=== PATIENT | male | born 1970 | race Caucasian/White ===

== ENCOUNTER → 2022-12-17 10:19 | Outpatient (BNVA) | payer MEDICAID, SELFPAY | PROVIDERS: PCP Registered Nurse; Visit Provider Surgery | DX: E66.01 Morbid (severe) obesity due to excess calories (principal); Z86.010 Personal history of colon polyps; Z68.38 Body mass index [BMI] 38.0-38.9, adult | CPT/HCPCS: 99212 ==

== ENCOUNTER 2023-01-30 06:07 | Day surgery (SDC) | payer MEDICAID, SELFPAY ==
[2023-01-27 16:01] VITALS: BMI 38.5
[2023-01-30 06:26] VITALS: BP 144/80; PULSE 81; RESP 18; TEMP 36.6; O2SAT 97
[2023-01-30] MEDS: Lactated Ringers 1,000 ML 50 ML IVCONT (06:26)
--- NOTE | 2023-01-30 07:57 | P.OP_ITS ---
Operative Note Operative Note Date of Service: 01/30/23 Narrative: Preop diagnosis: History of adenomatous polyp of the colon Postop diagnosis: Internal, external hemorrhoids otherwise normal colonoscopy findings Procedure: Colonoscopy Surgeon: Vineet Burch MD The patient is a 52-year-old male with a colonoscopy in 2019, with an adenomatous polyp, more than 1 cm, on a stalk, removed at that time. I therefore recommended for him to have a follow-up colonoscopy within 3 years in view of this. He understood the technique of the planned procedure as well as the risks, benefits, and alternatives The patient was brought to the operating room and placed in left lateral d ecubitus position under monitored anesthesia care. A surgical time-out was done. A full digital rectal exam was done and this did not reveal any significant anal lesions. The tip of the Olympus colonoscope was gently introduced through the anal orifice advanced with insufflation all the way to the cecum. The cecum was intubated. The cecum was identified by visualization of the ileocecal valve as well as the appendiceal orifice. The cecal mucosa was unremarkable. The scope was gradually withdrawn with careful examination of the entire colonic mucosa being done with scope withdrawal. The patient had adequate bowel prep so it was unlikely that any lesion may have been missed. We made multiple passes at the level of about 30-50 cm and we did not find any residual or recurrent polyp.The rectum was reached and there were no lesions seen. The anal canal was unremarkable. The scope was then withdrawn completely with desufflation . The patient tolerated procedure well. There were no immediate complications. In view of his history of large adenomatous polyp, I would recommend another colonoscopy in the next 5 years.
--- NOTE | 2023-01-30 08:00 | MHC.SHP ---
Pre-Procedural Eval Section A Date of Service: 01/30/23 Section B Chief Complaint: Personal history of colonic polyps Details of Present Illness: history of polyp in 2019, more than 1 cm Relevant Social History: None Present Medications: see Short Stay Collaborative assessment Medical History: Significant History ( obesity, hyperlipidemia) History of Previous Operations: No relevant previous surgery Allergies: Allergies Allergy/AdvReac Type Severity Reaction Status Date / Time No Known Drug Allergies Allergy Unknown U Verified 01/30/23 06:18 Review of Systems Sugical H&P ROS: Negative: Constitution, Cardiovascular, Respiratory, Neurological, Psychiatric, Hem-Onc, Allergic/Immunologic, Gastrointestinal, Genitourinary, Musculoskeletal, Integumentary, Endocrine and Eyes/Ears/Nose/Throat Exam Surgical H&P Exam: Normal: HEENT, Normal: Heart, Normal: Lungs, Normal: Extremities, Normal: Abdomen, Normal: Skin and Normal: Neurological Plan Diagnosis/Plan: Unchanged I have reviewed the history and physical and performed a pertinent physical examination on my patient. No changes have occurred unless specified. Time Spent With Patient Time: Total time managing care of this patient today ____ minutes.
[2023-01-30 08:03] VITALS: BP 127/72; PULSE 82; RESP 16; TEMP 36.6; O2SAT 95
[2023-01-30 08:18] VITALS: BP 127/89; PULSE 73; RESP 18; TEMP 36.9; O2SAT 96
--- NOTE | 2023-01-30 08:45 | P.CONAN_ITS ---
[facility] Active Problems Active Problems: All Active Problems (Updated 12/17/22 @ 10:39 by Vineet Burch MD) Morbid obesity (Acute) Hyperlipidemia (Acute) History of adenomatous polyp of colon (Acute) Past Medical History Medical History History of adenomatous polyp of colon Hyperlipidemia Morbid obesity Family History Family History Father Colon cancer Family history of problems with anesthesia: No Surgical History Surgical History H/O local excision of skin lesion (04/07/18) History of colonoscopy (10/23/19) History of colonoscopy with polypectomy (10/14/19) History of Problems with Anesthesia: No Social History Social History Alcohol intake: never Patient Tobacco Use Status: Never used Tobacco Meds Allergies Allergy/AdvReac Type Severity Reaction Status Date / Time No Known Drug Allergies Allergy Unknown U Verified 01/30/23 06:18 Home Medications Medication Instructions Recorded Confirmed Last Taken Type aspirin 81 mg tablet,delayed 81 mg PO DAILY 12/17/22 01/30/23 01/27/23 History release (Adult Low Dose Aspirin) atorvastatin 10 mg tablet 10 mg PO BEDTIME 12/17/22 01/30/23 Unknown History Exam Exam Date and Time: January 30, 2023 0845 Height,Weight and Vital Signs: Height 5 ft 8 in Weight 114.759 kg Last Vital Signs Temp 98.4 F 01/30/23 08:18 Pulse 73 01/30/23 08:18 Resp 18 01/30/23 08:18 BP 127/89 01/30/23 08:18 Pulse Ox 96 01/30/23 08:18 O2 Del Method Room Air 01/30/23 08:18 Airway Mallampati Class: III TM Dist: >3cm Neck ROM: Full Heart: RRR Lungs: CTA Assessment and Plan Final Anesthetic Review Family History of Problems with Anesthesia: No History of Problems with Anesthesia: No NPO: Yes ASA Class: III Final Preanesthetic Review: Meds/Allgs Chart Reviewed, Consent Obtained/Reviewed and Anes Risks/Benef Reviewed Patient Risk: Low Procedure Risk: Low Anesthetic Plan Anesthetic Plan: MAC: Disposition: Standard PACU
--- NOTE | 2023-01-30 08:47 | HO.POSTANES ---
Post Anesthesia Evaluation Post Anesthesia Evaluation Date of Service: 01/30/23 Vital Signs: Vital Signs Temp Pulse Resp BP Pulse Ox O2 Del Method 01/30/23 08:18 98.4 F 73 18 127/89 96 Room Air 01/30/23 08:03 98 F 82 16 127/72 95 Room Air 01/30/23 06:26 97.9 F 81 18 144/80 H 97 Room Air Anesthesia: Monitored Mental Status: Awake Pain Control: Satisfactory Nausea/Vomiting: None Hydration: Adequate Anesthesia-Related Issues: No Anes. Related Issues
== END 2023-01-30 08:41 | disposition home or self-care (01) ==
PROVIDERS: PCP Registered Nurse; Visit Provider Surgery
PROC: 0DJD8ZZ Inspection of Lower Intestinal Tract, Via Natural or Artificial Opening Endoscopic (ICD-10-PCS; CPT 45378; principal; 2023-01-30 07:30)
DX: Z12.11 Encounter for screening for malignant neoplasm of colon (principal); Z86.010 Personal history of colon polyps; K64.8 Other hemorrhoids; K64.4 Residual hemorrhoidal skin tags; E78.5 Hyperlipidemia, unspecified; E66.01 Morbid (severe) obesity due to excess calories; Z68.38 Body mass index [BMI] 38.0-38.9, adult; Z79.82 Long term (current) use of aspirin; Z79.899 Other long term (current) drug therapy
CPT/HCPCS: 45378

== ENCOUNTER 2023-04-30 16:23 | Outpatient (REF) | payer OTHER, SELFPAY | END 2023-04-30 16:24 | disposition home or self-care (01) | LOC: HO.HHCL 16:23 | PROVIDERS: Visit Provider Registered Nurse | DX: Z00.00 Encounter for general adult medical examination without abnormal findings (principal) | CPT/HCPCS: 36415; 84153 ==

== ENCOUNTER 2023-11-24 08:53 | Outpatient (REF) | payer BC, SELFPAY ==
[2023-11-24 13:54] LABS: Anion Gap 13 (12-20); Blood Urea Nitrogen 13 mg/dL (9-16); Calcium 9.2 mg/dL (8.4-10.2); Carbon Dioxide 22 mmol/L (22-29); Chloride 106 mmol/L (96-108); Cholesterol 171 mg/dL (<200); Estimated Glomerular Filt Rate > 60; Glucose Random 125 mg/dL (60-115); HDL Cholesterol 41 mg/dL (>40); LDL Cholesterol Calculated 112 mg/dL (<100); Potassium 4.1 mmol/L (3.3-5.1); Sodium 137 mmol/L (135-145); Triglycerides 93 mg/dL (<150)
[2023-11-24 14:09] LABS: Creatinine Urine 203.98 mg/dL; Microalbum/Creatinine Ratio Ur 128.4 ug/mg cr (<30)
[2023-11-25 08:38] LABS: HBS Num1 62.08 mIU/mL (0-7.99); HBc Num1 0.13 S/CO (0.00-0.79); HBsAGNum1 0.38 S/CO (0.00-0.99); Hepatitis B Core Antibody Nonreactive (Nonreactive); Hepatitis B Surface Antigen Negative (Negative); ~HepC Num1 0.09 S/CO (0.00-0.79); ~Hepatitis B Surface Antibody REACTIVE (Nonreactive); ~Hepatitis C Antibody Nonreactive (Nonreactive)
== END 2023-11-24 08:54 | disposition home or self-care (01) ==
LOC: HO.HHCL 08:53
PROVIDERS: Visit Provider Nurse Practitioner
DX: Z11.3 Encounter for screening for infections with a predominantly sexual mode of transmission (principal); E66.01 Morbid (severe) obesity due to excess calories; Z68.38 Body mass index [BMI] 38.0-38.9, adult; I10 Essential (primary) hypertension
CPT/HCPCS: 36415; 80048; 80061; 82043; 82570; 86704; 86706; 86803; 87340

== ENCOUNTER 2024-04-09 00:08 | Observation (INO) | payer BC, SELFPAY ==
[2024-04-09] VITALS (13 sets, daily range): BP systolic 132–181; BP diastolic 73–92; PULSE 57–96; RESP 12–20; TEMP 36.1–37.4; O2SAT 96–100; BMI 35.6; BMI 37.0
--- NOTE | ~2024-04-09 | CT_ITS ---
EXAMINATION: CT HEAD WITHOUT CONTRAST (STROKE PROTOCOL) CLINICAL INFORMATION: Stroke protocol. Left-sided numbness. Slurred speech. COMPARISON: None available. TECHNIQUE: Contiguous axial imaging was performed from the skull base to vertex without intravenous administration of contrast. This CT examination was performed using dose optimization techniques as appropriate, variously including the following: *Automated exposure control *Adjustment of mA and/or kV according to patient size (this includes techniques or standardized protocols for targeted exams where dose is matched to indication/reason for exam; i.e. extremities or head) *Use of iterative reconstruction technique DLP: 715 mGy-cm FINDINGS: The lateral, third and fourth ventricles are normally aligned. The cortical sulci and basal cisterns are normally as well as well. There is no acute territorial defect, hemorrhage or midline shift. Extra-axial spaces are unremarkable. Calvarium/scalp: Intact. Maxillofacial sinuses and mastoids: Clear as visualized. CT/CT head for stroke IMPRESSION: No acute intracranial pathology. This critical result was discussed with Dr. Josue Cantu at 12:46 AM hours on April 09, 2024 . It was ascertained that the content and urgency of the report was understood at the time of direct communication. Electronically signed by: Bhupendra Garcia MD 04/09/2024 12:51 AM EDT
--- NOTE | ~2024-04-09 | MR_ITS ---
EXAMINATION: MR CERVICAL SPINE WITHOUT CONTRAST CLINICAL INFORMATION: c3-c4 protrusion COMPARISON: Same day CTA Head and Neck TECHNIQUE: MRI of the cervical spine was obtained using routine sequences without contrast. FINDINGS: Motion degraded examination Slight reversal of the usual lordosis in the upper cervical spine. No significant spondylolisthesis. No suspicious marrow signal or focal osseous lesion. No significant marrow edema. The vertebral body heights are maintained. Mild disc height loss at C5-C6 The cervical spinal cord is normal in caliber and signal. Limited evaluation of the soft tissues of the neck without demonstrated abnormalities. The flow voids of the major cervical vessels are maintained. Within the limitations of motion artifact, no cord signal abnormality is identified. SPINAL LEVELS: C2-C3: No significant spinal canal or neuroforaminal narrowing . Left facet arthropathy. C3-C4: Shallow disc bulge contacts the ventral cord but does not contribute to significant spinal canal stenosis. Mild uncovertebral hypertrophy and mild bilateral neural foraminal narrowing. C4-C5: Left facet arthropathy and uncovertebral hypertrophy. Mild to moderate left neural foraminal narrowing. No significant central spinal canal stenosis. C5-C6: Disc bulge with superimposed left central extrusion contacts the left ventral cord and contributes to moderate left eccentric central spinal canal stenosis. Gyne-rl-hmorrqoz left neural foraminal narrowing. C6-C7: No significant spinal canal or neuroforaminal narrowing . Shallow central disc protrusion. C7-T1: No significant spinal canal or neuroforaminal narrowing MR/MR cervical spine wo con IMPRESSION: 1. At C5-C6, a left central disc extrusion contacts the left ventral cord and contributes to moderate left eccentric spinal canal stenosis. No cord signal abnormality. 2. Additional mild degenerative changes of the cervical spine as described above without significant spinal canal stenosis or high-grade neural foraminal narrowing. Electronically signed by: Josue Ruff MD 04/09/2024 11:19 AM EDT
--- NOTE | ~2024-04-09 | CT_ITS ---
EXAMINATION: CT ANGIOGRAM HEAD CT ANGIOGRAM NECK CLINICAL INFORMATION: Stroke Protocol COMPARISON: Concurrent head CT TECHNIQUE: Test bolus sequences followed by intravenous administration 70 mL of Omnipaque 350. Helical imaging was performed in the axial plane from the aortic arch to the skull vertex. Delayed postcontrast imaging of the head was also performed. The data was processed at the pet technologist's workstation for generation of MIP sequences. Angled MIPs and volume rendered reformatted images were also generated at an offline 3D workstation. Stenoses are assessed in accordance with Guillen et al. Quantification of Carotid Stenosis on CT Angiography. AJR 2006. 27(1):13-19. This CT examination was performed using dose optimization techniques as appropriate, variously including the following: *Automated exposure control *Adjustment of mA and/or kV according to patient size (this includes techniques or standardized protocols for targeted exams where dose is matched to indication/reason for exam; i.e. extremities or head) *Use of iterative reconstruction technique DLP: 1536 mGy-cm FINDINGS: CT HEAD: Noncontrast intracranial findings discuss separately. No pathologic intra-axial enhancement or regional oligemia. CTA HEAD: No hemodynamically significant stenosis or occlusion in the anterior or posterior circulation. No aneurysms and no high flow vascular malformations. Timing of the contrast bolus allows assessment of the major dural venous sinuses, which all opacify normally CTA NECK: Suboptimal examination related to contrast bolus timing and patient's body habitus. Classic 3 vessel branching pattern of the aortic arch. Origins of the great vessels are widely patent. The common carotid arteries are widely patent. The carotid bifurcations and bilateral internal carotid arteries are normal. The vertebral arteries are codominant The vertebral artery ostia are widely patent. Both vertebral arteries are widely patent throughout their extracranial cervical course. CT NECK: Punctate calcified palatine tonsilloliths. Mild cervical spondylosis, notably with a paracentral disc protrusion at C3-C4 encroaching upon and likely causing mass effect along the ventral cord. Reversal of the normal cervical lordosis. Partially imaged findings of diffuse idiopathic skeletal hyperostosis in the thoracic spine with asymmetric bridging right ventrolateral disc osteophytes. CT/CT angio head neck stroke IMPRESSION: 1. No acute intracranial findings. 2. No acute arterial occlusion or hemodynamically significant stenosis within the head or neck. 3. Paracentral disc protrusion at C3-C4 encroaches upon and likely causing mass effect along the ventral cord. Correlate clinically for referable myelopathy and consider further evaluation with cervical spine MRI as warranted. Electronically signed by: Sara Gtz MD 04/09/2024 01:10 AM EDT RP
--- NOTE | ~2024-04-09 | MR_ITS ---
EXAMINATION: MR BRAIN WITHOUT CONTRAST CLINICAL INFORMATION: Possible CVA. COMPARISON: CT head and CT of the head and neck earlier 08/09/2023. TECHNIQUE: MRI of the brain was obtained using routine sequences without contrast. FINDINGS: No diffusion abnormalities are identified to suggest an acute or subacute infarct. No mass effect or midline shift is seen. The ventricles and sulci are normal in size. There are few nonspecific foci of hyperintense T2 and FLAIR signal in the periventricular and subcortical white matter. No extra-axial fluid collections are seen. The brainstem appears normal. No pathologic magnetic susceptibility artifact is identified on the gradient refocused acquisition. The cerebellar tonsils have normal contour and position, and the craniocervical junction appears normal. Marrow signal and midline structures are normal. The major intracranial flow-voids at the level of the lower [place] are preserved. The dural venous sinus flow-voids are maintained. The mastoid air cells and paranasal sinuses are well-aerated. MR/MR head/brain wo con IMPRESSION: 1. There are no acute bleeds or territorial infarcts. No masses are demonstrated. Electronically signed by: Denis Mcarthur MD 04/09/2024 11:15 AM EDT
--- NOTE | 2024-04-09 00:29 | ECG_ITS ---
Test Reason : weakness Blood Pressure : / mmHG Vent. Rate : 099 BPM Atrial Rate : 099 BPM P-R Int : 166 ms QRS Dur : 090 ms QT Int : 340 ms P-R-T Axes : 056 004 090 degrees QTc Int : 436 ms Normal sinus rhythm Nonspecific T wave abnormality Abnormal ECG When compared with ECG of 01-FEB-2013 06:49, ST no longer elevated in Lateral leads QT has lengthened Referred By: Josue Cantu Electronically Signed By:CECILIA GERONIMO
[2024-04-09 00:33] LABS: Prothrombin Time Whole Bld POC 11.9 sec (11.1-13.5)
--- NOTE | 2024-04-09 00:34 | PC.NURSE ---
pt ambulatory with steady gait from wr to ed4. this rn made aware of stroke alert 0023, provider made aware as well and to bedside at 0025. pt reports speech is d/t partial dentures and is not abnormal. strength equal no focal deficits noted to EDOUARD & MARCO. pt is axox4 speaking full sentences. pt denies RUBY/dizziness/cp/sob reports was watching tv and started to feel off. estimate lkwt 2350 per pt, felt normal before this time and was watching tv without issues then felt L. sided facial/arm/leg heaviness. pt states is taking 81mg aspirin daily. iv established, labs drawn. ekg obtained. pt placed on heart monitor. with ct at this time.
[2024-04-09 00:35] LABS: Basophils Absolute Auto 0.1 X10*3/uL (0.0-0.2); Basophils Percent Auto 0.4 % (0-2); Eosinophils Absolute Auto 0.2 X10*3/uL (0.0-0.4); Eosinophils Percent Auto 1.7 % (0-4); Glucose, Whole Blood 144 mg/dL (60-115); Hematocrit 48.2 % (42.0-52.0); Hemoglobin 16.2 g/dl (14.0-18.0); Imm Gran Abs Auto 0.05 X10*3/uL (0.00-0.03); Imm Gran Pct Auto 0.4 % (0.0-0.4); Lymphocytes Percent Auto 51.6 % (20-40); MANUAL DIFF FLAG SCAN; Mean Corpuscular HGB Conc 33.6 g/dl (31.0-36.0); Mean Corpuscular Hemoglobin 26.6 pg (27.0-33.0); Mean Corpuscular Volume 79.3 fL (80.0-98.0); Mean Platelet Volume 11.7 fL (9.4-12.4); Monocytes Absolute Auto 0.8 X10*3/uL (0.1-1.2); Monocytes Percent Auto 6.5 % (2-11); Neutrophils Absolute Auto 4.5 x10*3/uL (2.0-8.3); Neutrophils Percent Auto 39.4 % (45-73); Platelet Count 232 X10*3/uL (160-400); Red Blood Count 6.08 X10*6/uL (4.60-5.80); Red Cell Distribution Width 13.8 % (11.0-16.0); SCAN SMEAR FLAG 1; White Blood Count 11.6 X10*3/uL (4.8-10.8)
[2024-04-09 00:40] LABS: INTERNATIONAL NORM RATIO 0.9 (0.9-1.1)
[2024-04-09 00:42] LABS: Partial Thromboplastin Time 31.7 SEC (26.0-36.8)
[2024-04-09 00:46] LABS: Stroke Lab Use COMPLETE
[2024-04-09 00:52] LABS: Anion Gap 14 (12-20); Blood Urea Nitrogen 14 mg/dL (9-16); Calcium 9.4 mg/dL (8.4-10.2); Carbon Dioxide 26 mmol/L (22-29); Chloride 104 mmol/L (96-108); Cholesterol 201 mg/dL (<200); Creatinine Clr Calc Pharmacy 91.9; Estimated Glomerular Filt Rate > 60; Glucose Random 142 mg/dL (60-115); HDL Cholesterol 43 mg/dL (>40); LDL Cholesterol Calculated 106 mg/dL (<100); Potassium 3.2 mmol/L (3.3-5.1); Sodium 141 mmol/L (135-145); Triglycerides 261 mg/dL (<150)
[2024-04-09 00:57] LABS: SLIDE REVIEW VERIFIED
[2024-04-09] MEDS: iohexoL 350 MG/ML 100 ML INFUS..BTL 70 ML IV (00:57)
--- NOTE | 2024-04-09 00:59 | ED_ITS ---
HPI - Neuro Symptoms/Deficit General Chief Complaint: Stroke Stated Complaint: Arm/Face Numbness Time Seen by Provider: 04/09/24 00:28 Source: patient, RN notes reviewed and old records reviewed Mode of arrival: ambulatory Limitations: no limitations History of Present Illness ED Provider: Pepe BECKETT Narrative: 53-year-old male past medical history significant for diabetes, hyperlipidemia, obesity, hypertension presents for evaluation of ?left-sided numbness. ? Patient reports that 11:50 p.m, about 30 minutes prior to arrival he developed numbness in the left arm and leg. He describes the feeling as ?feeling heavy. ? He did not have any pain including chest pain or headache. The patient is unsure if his speech sounded slurred or not He states this has happened once in the past while he was at work but ?I did not pay any attention to it and it went away. ? The patient states that by the time I evaluated him his symptoms have been improving He still feels some degree of numbness Related Data Home Medications ?Medication ?Instructions ?Recorded ?Confirmed aspirin 81 mg tablet,delayed 81 mg PO DAILY 12/17/22 01/30/23 release (Adult Low Dose Aspirin) atorvastatin 10 mg tablet 10 mg PO BEDTIME 12/17/22 01/30/23 Allergies Allergy/AdvReac Type Severity Reaction Status Date / Time No Known Drug Allergies Allergy Unknown U Verified 04/09/24 00:19 Review of Systems 2 Constitutional: Constitutional: Denies body ache(s), Denies chills, Denies fever(s) and Denies headache(s) ENT: Denies headache(s) Cardiovascular: Cardiovascular: Denies chest pain Musculoskeletal: Musculoskeletal: Denies arthralgias and Reports numbness Neurologic: Denies headache(s) and Reports numbness PMFSH Past Medical History Medical History History of adenomatous polyp of colon Hyperlipidemia Morbid obesity Surgical History H/O local excision of skin lesion (04/07/18) History of colonoscopy (10/23/19) History of colonoscopy with polypectomy (10/14/19) Family History Family History Father Colon cancer Social History Social History Alcohol intake: never Patient Tobacco Use Status: Never used Tobacco Smoked in Last 30 Days: No Use of substances other than those prescribed or required for medical reasons: No Advance Directives: No Advance Directives Information Provided: Yes Do you have a plan to hurt others: No Plan Physical Exam 2 Vital Signs: Vital Signs: Last Vital Signs Temp 98.3 F 04/09/24 01:09 Pulse 88 04/09/24 01:47 Resp 15 04/09/24 01:45 BP 147/75 H 04/09/24 01:45 Pulse Ox 98 04/09/24 01:45 O2 Del Method Room Air 04/09/24 01:45 BMI result Body Mass Index 35.6 Const: General: healthy appearing, comfortable, no acute distress, alert and awake Nutritional Appearance: well nourished Orientation/consciousness: p atient oriented x3 HEENT: Head: Yes normocephalic and Yes atraumatic Eyes: Eyelids: Yes eyelids normal Conjunctivae: conjunctivae normal S clerae: sclerae normal Corneas: corneas normal Pupils: Equal, round and reactive pupils present EOM: EOMs intact bilaterally Neck: Neck: Yes full ROM Resp: Effort & Inspection: normal respiratory effort, able to speak in complete sentences and not labored Skin: General skin exam: elasticity normal Neuro: General: patient oriented x3 Cranial nerves: Yes CN's II-XII intact bilaterally, Yes Equal, round and reactive pupils present and Yes Bilaterally intact EOM present Cognition (Neuro): normal cognition Course Reevaluation(s) Reevaluation #1: Received a call from Radiology the patient's brain CT was unremarkable, no evidence of acute pathology or hemorrhage. I ordered a dose of aspirin at this time Time: 01:19 Reevaluation #2: Patient re-evaluated, no change in his symptoms. Time: 01:30 Medications Administered Discontinued Medications Generic Name Dose Route Start Last Admin Trade Name Freq PRN Reason Stop Dose Admin Aspirin 324 mg 04/09/24 01:19 04/09/24 01:43 Aspirin 81 Mg Tab.Chew PO 04/09/24 01:20 324 mg ONCE ONE Administration Iohexol 70 ml 04/09/24 00:57 04/09/24 00:57 Iohexol 350 Mg/Ml 100 Ml Infus..Btl IV 04/09/24 00:58 70 ml ONCE ONE Administration Potassium Chloride 40 meq 04/09/24 01:19 04/09/24 01:43 Potassium Chloride Er 20 Meq Tab.Er.Prt PO 04/09/24 01:20 40 meq ONCE ONE Administration Medical Decision Making Medical Decision Making [facility] Narrative: Patient is seen and evaluated, he has numerous risk factors for ischemic disease. The patient does have mild dysarthria on exam per my report, the patient states that he is unsure if this is baseline or not. Even with a point for dysarthria he only has an NIH stroke score of 1. However given his multiple risk factors, left sided numbness and dysarthria a CT brain as well as angiography was obtained with stroke protocol. The patient also reports that this has happened once in the past, so he needs to be ruled out for ischemic disease. Differential Diagnosis Differential Diagnoses: The differential diagnosis associated with the presentation includes TIA CVA ACS less likely Neuropathy Anxiety Admission/Observation Consideration of admission/observation: Escalation of care including admission/observation considered Consider admission for CVA workup Consult Healthcare Provider Management of the patient was discussed with: Hospitalist Dr Spears who will admit the patient Lab Data [facility] Lab Attestation statement: I reviewed the patient's lab results. Mild leukocytosis to 11.6, no significant anemia. Normal platelet count. Electrolytes significant for a hypokalemia of 3.2. Otherwise electrolytes within normal limits, renal function within normal limits. The patient is a diabetic with a glucose of 142 04/09/24 00:28 04/09/24 00:28 Labs: Lab Results 04/09/24 04/09/24 Range/Units 00:28 00:30 WBC 11.6 H (4.8-10.8) X10*3/uL RBC 6.08 H (4.60-5.80) X10*6/uL Hgb 16.2 (14.0-18.0) g/dl Hct 48.2 (42.0-52.0) % MCV 79.3 L (80.0-98.0) fL MCH 26.6 L (27.0-33.0) pg MCHC 33.6 (31.0-36.0) g/dl RDW 13.8 (11.0-16.0) % Plt Count 232 (160-400) X10*3/uL MPV 11.7 (9.4-12.4) fL Immature Gran % (Auto) 0.4 (0.0-0.4) % Neut % (Auto) 39.4 L (45-73) % Lymph % (Auto) 51.6 H (20-40) % [place] % (Auto) 6.5 (2-11) % Eos % (Auto) 1.7 (0-4) % Baso % (Auto) 0.4 (0-2) % Lymph # (Auto) 6.0 H (1.2-4.9) X10*3/uL [place] # (Auto) 0.8 (0.1-1.2) X10*3/uL Eos # (Auto) 0.2 (0.0-0.4) X10*3/uL Baso # (Auto) 0.1 (0.0-0.2) X10*3/uL Abs Immat Gran (auto) 0.05 H (0.00-0.03) X10*3/uL Absolute Neuts (auto) 4.5 (2.0-8.3) x10*3/uL Absolute Nucleated RBC 0.000 (0.0-0.012) X10*3/uL Nucleated RBC % (auto) 0.0 (0.0-0.2) /100WBC Smear Tech's Comments VERIFIED Hold Purple Top SEE NOTE PT 11.0 L (11.1-13.3) SEC Whole Blood PT 11.9 (11.1-13.5) sec INR 0.9 (0.9-1.1) Whole Blood INR 1.0 (0.9-1.1) APTT 31.7 (26.0-36.8) SEC Sodium 141 (135-145) mmol/L Potassium 3.2 L D (3.3-5.1) mmol/L Chloride 104 (96-108) mmol/L Carbon Dioxide 26 (22-29) mmol/L Anion Gap 14 (12-20) BUN 14 (9-16) mg/dL Creatinine 1.12 (0.5-1.4) mg/dL Estim Creat Clear Calc 91.9 Estimated GFR > 60 POC Glucose 144 H (60-115) mg/dL Random Glucose 142 H (60-115) mg/dL Calcium 9.4 (8.4-10.2) mg/dL Troponin I High Sens < 2.7 (<3.5-35.0) ng/L Triglycerides 261 H (<150) mg/dL Cholesterol 201 H (<200) mg/dL LDL Cholesterol, Calc 106 H (<100) mg/dL HDL Cholesterol 43 (>40) mg/dL Independent Interpretation I performed an independent interpretation of an: EKG Interpretation: Normal sinus rhythm with a rate of 99 beats minute. No ectopy, no ST segment elevation or depression NIH Stroke Scale Internal: Initial- Upon Arrival Time: 12:30 Level of Consciousness: Alert Level of Consciousness Questions: Answers both questions correctly Level of Consciousness Commands: Performs both tasks correctly Best Gaze: Normal Visual: No visual loss Facial Palsy: Normal Motor Arm (Right): No drift Motor Arm (Left): No drift Motor Leg (Right): No drift Motor Leg (Left): No drift Limb Ataxia: Absent Sensory: Normal Best Language: No aphasia Dysarthia: Mild to moderate dysarthria Extinction and Inattention: No abnormality Score: 1 Critical Care Time Critical Care Time Critical Care Time: Yes Total Critical Care Time: 45 Attestation: 53-year-old male with multiple risk factors for ischemic disease presents for evaluation of left-sided numbness in his arm and leg. He also has associated dysarthria. His NIH stroke score is a 1. The patient was considered for TNK, after several re-evaluations, discussion with Radiology, ultimately TNK is not indicated in this patient due to low stroke score in his symptoms are already improving. Discharge Plan Discharge Clinical Impression: Dysarthria, Left sided numbness Patient Disposition: Admitted As Inpatient Prescriptions: No Action aspirin [Adult Low Dose Aspirin] 81 mg tablet,delayed release (DR/EC) 81 mg PO DAILY atorvastatin 10 mg tablet 10 mg PO BEDTIME Print Language: Belarusian
[2024-04-09 01:01] LABS: Troponin-I High Sensitivity < 2.7 ng/L (<3.5-35.0)
[2024-04-09] MEDS: Potassium Chloride ER 20 MEQ TAB.ER.PRT 40 MEQ PO (01:43)
[2024-04-09] MEDS: Aspirin 81 MG TAB.CHEW 324 MG PO (01:43)
--- NOTE | 2024-04-09 01:52 | PC.NURSE ---
pt passed swallow eval as documented. pt medicated per mar tolerated po meds no signs of aspiration such as additional swallowing/throat clearing noted. call park within reach.
--- NOTE | 2024-04-09 02:48 | PM.IMHP ---
History of Present Illness Date of Service: 04/09/24 Chief Complaint: Numbness This is a 53-year-old male with pertinent history of hypertension, mixed hyperlipidemia, vei-knqslvc-tqkwdnsug diabetes mellitus, morbid obesity, mood disorder, KATE on CPAP who presents to the emergency department for evaluation of left-sided numbness. Patient states that about 23:50, he had sudden onset of left upper and lower extremity numbness and tingling. It lasted for about 30 minutes delay came to the ER. Unsure if he had any slurring of speech as he has dentures. No motor extremity weakness. Has never happened before. Patient is compliant with his home p.o. medications. No fever, chills, chest discomfort, palpitations, shortness of breath, abdominal pain, changes in urinary or bowel habits. In the emergency department, CT head without any acute abnormality. CTA neck with disc protrusion at C3-C4 Review of Systems Constitutional: Constitutional: Reports no additional constitutional complaints Cardiovascular: Cardiovascular: Reports no additional cardiovascular complaints Respiratory: Respiratory: Reports no additional respiratory complaints Gastrointestinal: Gastrointestinal: Reports no additional gastrointestinal complaints Genitourinary: Genitourinary: Reports no additional male genitourinary complaints [facility] Medical History Morbid obesity Hyperlipidemia History of adenomatous polyp of colon Family History Father Colon cancer Surgical History H/O local excision of skin lesion (04/07/18) History of colonoscopy (10/23/19) History of colonoscopy with polypectomy (10/14/19) Social History Alcohol intake: never Patient Tobacco Use Status: Never used Tobacco Smoked in Last 30 Days: No Use of substances other than those prescribed or required for medical reasons: No Advance Directives: No Advance Directives Information Provided: Yes Do you have a plan to hurt others: No Plan Meds Allergies Allergy/AdvReac Type Severity Reaction Status Date / Time No Known Drug Allergies Allergy Unknown U Verified 04/09/24 00:19 Home Medications ?Medication ?Instructions ?Recorded ?Confirmed ?Last Taken ?Type aspirin 81 mg tablet,delayed 81 mg PO DAILY 12/17/22 01/30/23 01/27/23 History release (Adult Low Dose Aspirin) atorvastatin 10 mg tablet 10 mg PO BEDTIME 12/17/22 01/30/23 Unknown History Physical Exam Vital Signs and Narrative: Vital Signs: Last Vital Signs Temp 98.3 F 04/09/24 01:09 Pulse 89 04/09/24 02:05 Resp 12 04/09/24 02:05 BP 147/74 H 04/09/24 02:05 Pulse Ox 97 04/09/24 02:05 O2 Del Method Room Air 04/09/24 02:05 BMI result Body Mass Index 35.6 Middle-aged male lying in bed in no distress Neck supple, no JVD Regular rate and rhythm, S1-S2 heard Regular breath sounds bilaterally, no wheezing or crackles appreciated Abdomen soft nontender, no guarding, no rigidity Patient is awake, alert and oriented to self, place, time and person ; no focal motor deficit, no pronator drift, no nystagmus, no facial droop, tongue and uvula midline Psych: Normal mood No pedal edema Results Labs 04/09/24 00:28 04/09/24 00:28 Labs: Laboratory Results - last 24 hr 04/09/24 04/09/24 00:28 00:30 MCV 79.3 L MCH 26.6 L MCHC 33.6 RDW 13.8 Plt Count 232 MPV 11.7 Immature Gran % (Auto) 0.4 Neut % (Auto) 39.4 L Lymph % (Auto) 51.6 H [place] % (Auto) 6.5 Eos % (Auto) 1.7 Baso % (Auto) 0.4 Lymph # (Auto) 6.0 H [place] # (Auto) 0.8 Eos # (Auto) 0.2 Baso # (Auto) 0.1 Abs Immat Gran (auto) 0.05 H Absolute Neuts (auto) 4.5 Absolute Nucleated RBC 0.000 Nucleated RBC % (auto) 0.0 Smear Tech's Comments VERIFIED Hold Purple Top SEE NOTE PT 11.0 L Whole Blood PT 11.9 INR 0.9 Whole Blood INR 1.0 APTT 31.7 Anion Gap 14 Estim Creat Clear Calc 91.9 Estimated GFR > 60 POC Glucose 144 H Random Glucose 142 H Calcium 9.4 Troponin I High Sens < 2.7 Triglycerides 261 H Cholesterol 201 H LDL Cholesterol, Calc 106 H HDL Cholesterol 43 Imaging Radiologist's Impressions: Impressions Head CT 04/09/24 00:30 IMPRESSION: No acute intracranial pathology. This critical result was discussed with Dr. Josue Cantu at 12:46 AM hours on April 09, 2024 . It was ascertained that the content and urgency of the report was understood at the time of direct communication. Electronically signed by: Bhupendra Garcia MD 04/09/2024 12:51 AM EDT RP Head/Neck CTA 04/09/24 00:35 IMPRESSION: 1. No acute intracranial findings. 2. No acute arterial occlusion or hemodynamically significant stenosis within the head or neck. 3. Paracentral disc protrusion at C3-C4 encroaches upon and likely causing mass effect along the ventral cord. Correlate clinically for referable myelopathy and consider further evaluation with cervical spine MRI as warranted. Electronically signed by: Sara Gtz MD 04/09/2024 01:10 AM EDT RP Assessment and Plan (1) Left sided numbness: Status: Acute Plan This is a 53-year-old male with pertinent history of hypertension, mixed hyperlipidemia, zpo-wxsttyy-amkgxrjzz diabetes mellitus, morbid obesity, mood disorder, KATE on CPAP who presents to the emergency department for evaluation of left-sided numbness. #. Left-sided numbness with ?slurred speech: Will admit patient with cardiac monitoring. Obtaining MRI brain to rule out acute CVA. Further workup and Neurology consult based on MRI results. CTA neck with C3-C4 disc protrusion. Also obtaining MRI cervical spine a cervical myelopathy/radiculopathy could be producing his symptoms #. Wns-vlkwubb-mmflzarii diabetes mellitus: Initiating Accu-Cheks with sliding scale insulin #. Morbid obesity: Counseled regarding diet and exercise #. KATE: Continue CPAP at bedtime #. Mixed hyperlipidemia: On statin #. Hypertension: Continue home mood stabilizers #. Mood disorder: Continue citalopram Med rec pending DVT prophylaxis: Lovenox Full code Quality Stroke Does the patient have a stroke diagnosis?: No VTE Prior VTE?: No VTE Risk Level:: Medical - moderate - high VTE Device Contraindication: Treatment Not Indicated VTE Drug Contraindication: N/A - Med Ordered
--- NOTE | 2024-04-09 03:14 | PC.NURSE ---
pt ambulatory with steady gait independently to bathroom and back to room. call park within reach.
[2024-04-09] MEDS: Enoxaparin Sodium 40 MG/0.4 ML SYRINGE SUBCUT (03:41)
--- NOTE | 2024-04-09 03:41 | PC.NURSE ---
pt verbalizes he feels normal and denies any sx at this time. neuros intact. report given to olivia carlos rn. pt awaiting transport.
[2024-04-09 07:17] LABS: Glucose, Whole Blood 123 mg/dL (60-115)
[2024-04-09 07:33] LABS: MANUAL DIFF FLAG NO
[2024-04-09 07:38] LABS: Basophils Percent Auto 0.5 % (0-2); Eosinophils Absolute Auto 0.1 X10*3/uL (0.0-0.4); Eosinophils Percent Auto 1.6 % (0-4); Hematocrit 46.8 % (42.0-52.0); Hemoglobin 15.7 g/dl (14.0-18.0); Imm Gran Abs Auto 0.04 X10*3/uL (0.00-0.03); Imm Gran Pct Auto 0.5 % (0.0-0.4); Lymphocytes Absolute Auto 2.6 X10*3/uL (1.2-4.9); Lymphocytes Percent Auto 33.2 % (20-40); Mean Corpuscular HGB Conc 33.5 g/dl (31.0-36.0); Mean Corpuscular Hemoglobin 26.5 pg (27.0-33.0); Mean Corpuscular Volume 78.9 fL (80.0-98.0); Mean Platelet Volume 12.2 fL (9.4-12.4); Monocytes Absolute Auto 0.4 X10*3/uL (0.1-1.2); Monocytes Percent Auto 5.7 % (2-11); Neutrophils Absolute Auto 4.5 x10*3/uL (2.0-8.3); Neutrophils Percent Auto 58.5 % (45-73); Platelet Count 208 X10*3/uL (160-400); Red Blood Count 5.93 X10*6/uL (4.60-5.80); Red Cell Distribution Width 13.7 % (11.0-16.0); White Blood Count 7.7 X10*3/uL (4.8-10.8)
[2024-04-09 07:58] LABS: Anion Gap 14 (12-20); Blood Urea Nitrogen 14 mg/dL (9-16); Calcium 9.2 mg/dL (8.4-10.2); Carbon Dioxide 22 mmol/L (22-29); Chloride 106 mmol/L (96-108); Creatinine Clr Calc Pharmacy 110.5; Estimated Glomerular Filt Rate > 60; Glucose Random 121 mg/dL (60-115); Sodium 138 mmol/L (135-145)
--- NOTE | 2024-04-09 08:31 | PHA.MEDREC ---
Pharmacy Consult ? Medication Reconciliation Pharmacy has completed the medication reconciliation. Spoke to patient and confirmed medication list.
--- NOTE | 2024-04-09 09:00 | MHC.CM.PN ---
CM met with Patient at bedside and addressed SEBASTIAN with him, providing Patient with the original and a copy has been placed on the chart. Patient lives in a house with his Brother and [employer] and he uses CPAP at home through [facility]. Patient's car is here for transport to home and PCP is from [facility].
[2024-04-09] MEDS: Empagliflozin 10 MG TABLET PO (09:37)
[2024-04-09] MEDS: 0.9 % Sodium Chloride Flush 3 ML SYRINGE IVFLUSH ×2 (09:40→20:47)
[2024-04-09 11:21] LABS: Glucose, Whole Blood 125 mg/dL (60-115)
--- NOTE | 2024-04-09 11:51 | P.DS_ITS ---
DS: Providers Provider Date of Service: 04/10/24 Date of admission: 04/09/24 02:46 Date of discharge: 04/10/24 Primary care physician: [facility] DS: Diagnosis Discharge Diagnosis (1) Left sided numbness: Status: Acute DS: Summary Hospital Course Hospital Course: Chief Complaint: Numbness This is a 53-year-old male with pertinent history of hypertension, mixed hyperlipidemia, hks-jeqhhrj-xiijbrnyu diabetes mellitus, morbid obesity, mood disorder, KATE on CPAP who presents to the emergency department for evaluation of left-sided numbness. Patient states that about 23:50, he had sudden onset of left upper and lower extremity numbness and tingling. It lasted for about 30 minutes delay came to the ER. Unsure if he had any slurring of speech as he has dentures. No motor extremity weakness. Has never happened before. Patient is compliant with his home p.o. medications. No fever, chills, chest discomfort, palpitations, shortness of breath, abdominal pain, changes in urinary or bowel habits. In the emergency department, CT head without any acute abnormality. CTA neck with disc protrusion at C3-C4 Hospital course: he presented with sudden ons set of left sided numbness with initial concern of of stroke, ct head, ct of head and neck as well as mri of the head show no acute stroke. A cervical spine MRI shows At C5-C6, a left central disc extrusion contacts the left ventral cord and contributes to moderate left eccentric spinal canal stenosis. No cord signal abnormality. The symptoms have resolved, his strenght is normal, he doesn't have history of dropping things. Will refer for outpatient neursurger Time Attestation Discharge Coordination Time (in mins): 35 Quality: Safe Use of Opioids Does Pt have an Active Cancer Diagnosis on the Problem List?: No Quality: Stroke Does the patient have a stroke diagnosis?: No Physical Exam Vital Signs: Vital Signs: Last Vital Signs Temp 98.4 F 04/09/24 11:24 Pulse 74 04/09/24 11:24 Resp 20 04/09/24 11:24 BP 143/84 H 04/09/24 11:24 Pulse Ox 97 04/09/24 11:24 O2 Del Method Room Air 04/09/24 11:24 O2 Flow Rate 6 04/09/24 07:23 BMI result Body Mass Index 37.0 General: AO X 3, no acute distress Resp: CTA bilateral CVS: S1,S2,RRR GI: +BS, NT, no distention Skin: No rash Neuro: motor grossly intact, normal strenght 5/5 in both upper extremties, Psych: appropriate affect DS: Data Data Completed and Pending Labs on day of discharge: Laboratory Results - last 24 hr 04/09/24 04/09/24 04/09/24 00:28 00:30 06:54 WBC 11.6 H 7.7 RBC 6.08 H 5.93 H Hgb 16.2 15.7 Hct 48.2 46.8 MCV 79.3 L 78.9 L MCH 26.6 L 26.5 L MCHC 33.6 33.5 RDW 13.8 13.7 Plt Count 232 208 MPV 11.7 12.2 Immature Gran % (Auto) 0.4 0.5 H Neut % (Auto) 39.4 L 58.5 Lymph % (Auto) 51.6 H 33.2 [place] % (Auto) 6.5 5.7 Eos % (Auto) 1.7 1.6 Baso % (Auto) 0.4 0.5 Lymph # (Auto) 6.0 H 2.6 [place] # (Auto) 0.8 0.4 Eos # (Auto) 0.2 0.1 Baso # (Auto) 0.1 0.0 Abs Immat Gran (auto) 0.05 H 0.04 H Absolute Neuts (auto) 4.5 4.5 Absolute Nucleated RBC 0.000 0.000 Nucleated RBC % (auto) 0.0 0.0 Smear Tech's Comments VERIFIED Hold Purple Top SEE NOTE PT 11.0 L Whole Blood PT 11.9 INR 0.9 Whole Blood INR 1.0 APTT 31.7 Sodium 141 138 Potassium 3.2 L D 4.0 D Chloride 104 106 Carbon Dioxide 26 22 Anion Gap 14 14 BUN 14 14 Creatinine 1.12 0.95 Estim Creat Clear Calc 91.9 110.5 Estimated GFR > 60 > 60 POC Glucose 144 H Random Glucose 142 H 121 H Calcium 9.4 9.2 Troponin I High Sens < 2.7 Triglycerides 261 H Cholesterol 201 H LDL Cholesterol, Calc 106 H HDL Cholesterol 43 04/09/24 04/09/24 07:09 11:17 WBC RBC Hgb Hct MCV MCH MCHC RDW Plt Count MPV Immature Gran % (Auto) Neut % (Auto) Lymph % (Auto) [place] % (Auto) Eos % (Auto) Baso % (Auto) Lymph # (Auto) [place] # (Auto) Eos # (Auto) Baso # (Auto) Abs Immat Gran (auto) Absolute Neuts (auto) Absolute Nucleated RBC Nucleated RBC % (auto) Smear Tech's Comments Hold Purple Top PT Whole Blood PT INR Whole Blood INR APTT Sodium Potassium Chloride Carbon Dioxide Anion Gap BUN Creatinine Estim Creat Clear Calc Estimated GFR POC Glucose 123 H 125 H Random Glucose Calcium Troponin I High Sens Triglycerides Cholesterol LDL Cholesterol, Calc HDL Cholesterol Discharge Plan Discharge Anticipated Discharge Date/Time: 04/10/24 15:02 Patient Disposition: Home, Self-Care Discharge Diagnosis: left sided numbness Referrals: [place] [Primary Care Provider] - 1 Week Discharge Medications: New atorvastatin 40 mg Tablet 40 mg PO BEDTIME Qty: 30 0RF Continued dapagliflozin propanediol [Farxiga] 5 mg tablet 5 mg PO DAILY citalopram 10 mg tablet 10 mg PO QAM aspirin [Adult Low Dose Aspirin] 81 mg tablet,delayed release (DR/EC) 81 mg PO DAILY Discontinued atorvastatin 10 mg tablet 10 mg PO BEDTIME Discharge Orders: Discharge Order (Routine); Ordered 04/10/24 Ordered By: Jovon Allen Diet: Advance to usual diet Activity on Discharge: No Running or jogging Stand Alone Forms: Patient Portal Discharge page Print Language: Khmer Care Plan Goals: more work up for numness in the hand Health Concerns: numbness in the arm Plan of Treatment: you will have outpatient neurosurgery evaluation Assessment: see above Discharge Date/Time: 04/10/24 15:36
--- NOTE | 2024-04-09 15:55 | PM.EVENT ---
Event Note Date of Service: 04/09/24 Event Note: pt admitted with transient numness in the hand. CT head no stroke, MRI head no stroke. Cervical mRI show 1. At C5-C6, a left central disc extrusion contacts the left ventral cord and contributes to moderate left eccentric spinal canal stenosis. No cord signal abnormality. will discuss with Neur Time Spent With Patient Time: Total time managing care of this patient today ____ minutes.
[2024-04-09 17:24] LABS: Glucose, Whole Blood 96 mg/dL (60-115)
[2024-04-09 20:25] LABS: Glucose, Whole Blood 129 mg/dL (60-115)
[2024-04-09] MEDS: Atorvastatin Calcium 40 MG TABLET PO (20:46)
[2024-04-10 03:01] VITALS: BP 134/80; PULSE 67; RESP 16; TEMP 36.5; O2SAT 97
[2024-04-10] MEDS: Enoxaparin Sodium 40 MG/0.4 ML SYRINGE SUBCUT (03:22)
[2024-04-10 05:05] VITALS: PULSE 67; RESP 16; O2SAT 97
[2024-04-10 07:00] VITALS: BP 145/88; PULSE 55; RESP 20; TEMP 36.3; O2SAT 98
[2024-04-10 07:46] LABS: Glucose, Whole Blood 128 mg/dL (60-115)
[2024-04-10] MEDS: Empagliflozin 10 MG TABLET PO (08:01)
[2024-04-10] MEDS: Aspirin Enteric Coated 81 MG TABLET.DR PO (08:01)
[2024-04-10] MEDS: 0.9 % Sodium Chloride Flush 3 ML SYRINGE IVFLUSH (08:01)
[2024-04-10 10:59] VITALS: BP 126/82; PULSE 57; RESP 20; TEMP 36.2; O2SAT 98
[2024-04-10 11:33] LABS: Glucose, Whole Blood 104 mg/dL (60-115)
[2024-04-10 14:55] VITALS: BP 135/73; PULSE 55; RESP 20; TEMP 36.3; O2SAT 97
--- NOTE | 2024-04-10 15:21 | MHC.CM.PN ---
Patient has been medically cleared for dc to home today, self care.
== END 2024-04-10 15:36 | disposition home or self-care (01) ==
LOC: HO.ED 02:03 → HO.EDOVER 03:01 → HO.IMC 03:25
PROVIDERS: Physician Assistant; Admitting Provider Student in an Organized Health Care Education/Training Program; Emergency Provider Emergency Medicine; Visit Provider Internal Medicine
DX: R47.1 Dysarthria and anarthria (principal); R20.0 Anesthesia of skin; M48.02 Spinal stenosis, cervical region; R53.1 Weakness; R47.81 Slurred speech; E11.9 Type 2 diabetes mellitus without complications; E78.5 Hyperlipidemia, unspecified; I10 Essential (primary) hypertension; E78.2 Mixed hyperlipidemia; F19.94 Other psychoactive substance use, unspecified with psychoactive substance-induced mood disorder; G47.33 Obstructive sleep apnea (adult) (pediatric); E66.01 Morbid (severe) obesity due to excess calories; Z68.35 Body mass index [BMI] 35.0-35.9, adult; Z79.899 Other long term (current) drug therapy
CPT/HCPCS: 36415; 70450; 70496; 70498; 70551; 72141; 80048; 80061; 82947; 84484; 85025; 85610; 85730; 93005; 94660; 96372; 99222; 99285; J1650; Q9967

== ENCOUNTER → 2024-04-09 00:45 | Outpatient (BNV) | payer BC, SELFPAY | PROVIDERS: Emergency Provider Emergency Medicine; Visit Provider Student in an Organized Health Care Education/Training Program | DX: R20.0 Anesthesia of skin (principal) | CPT/HCPCS: 99222; 99239; 99499 ==

== ENCOUNTER 2024-12-30 03:29 | Emergency (ER) | payer BC, SELFPAY ==
[2024-12-30 03:37] VITALS: BP 150/89; PULSE 68; RESP 16; TEMP 36.7; O2SAT 98
[2024-12-30 03:39] VITALS: BP 170/86; PULSE 86; O2SAT 98; BMI 36.2
--- NOTE | 2024-12-30 03:50 | ED.EXTPRO ---
HPI - Extremity Problem General Chief complaint: Extremity Injury, Upper Stated complaint: work injury LAC to L Hand, - thinners Time Seen by Provider: 12/30/24 03:50 Source: patient and EMS Mode of arrival: EMS Limitations: no limitations History of Present Illness ED Provider: Dr. Shefali Pisano HPI Narrative: Patient comes to the emergency room complaining of a laceration to the dorsal aspect of the 3rd digit of the left hand. Patient states that earlier today, patient was at work cleaning a machine, patient states that he is not sure how it happened but he lacerated his finger. Patient states that he had his tetanus shot less than a year ago. Denies any other injuries. Related Data Home Medications ?Medication ?Instructions ?Recorded ?Confirmed aspirin 81 mg tablet,delayed 81 mg PO DAILY 12/17/22 04/09/24 release (Adult Low Dose Aspirin) citalopram 10 mg tablet 10 mg PO QAM 04/09/24 04/09/24 dapagliflozin propanediol 5 mg 5 mg PO DAILY 04/09/24 04/09/24 tablet (Farxiga) Previous Rx's ?Medication ?Instructions ?Recorded atorvastatin 40 mg tablet 40 mg PO BEDTIME #30 tabs 04/10/24 Allergies Allergy/AdvReac Type Severity Reaction Status Date / Time No Known Drug Allergies Allergy Unknown U Verified 12/30/24 03:47 Review of Systems Review of Systems: Constitutional : No Weight loss, No Fever, No Chills, No Night Sweats, No Fatigue, No Malaise ENT/Mouth : No Hearing loss, No Ear Pain, No Nasal Congestion, No Sinus Pain, No Hoarseness, No sore throat, No Rhinorrhea, No Swallowing Difficulty Eyes: No Eye Pain, No Swelling, No Redness, No Foreign Body, No Discharge, No Vision Changes Cardiovascular : No Chest Pain, No SOB, No Dyspnea on Exertion, No Orthopnea, No Edema, No Palpitations Respiratory : No Cough, No Sputum, No Wheezing, No Smoke Exposure, No Dyspnea Gastrointestinal : No Nausea, No Vomiting, No Diarrhea, No Constipation, No abdominal Pain, No Hematochezia, No Melena Genitourinary : no irregular bleeding, No Dysuria, No Urinary Frequency, No Hematuria, No Urinary Incontinence, No Urgency, No Flank Pain, No Urinary Flow Changes, No Hesitancy Musculoskeletal : No joint pain, No Myalgias, No Joint Swelling Skin : Complaining of a laceration to the dorsum of the finger of the left hand middle finger Neuro : No Weakness, No Numbness, No Paresthesias, No Loss of Consciousness, No Dizziness, No Headache Psych : No Anxiety/Panic, No Depression, No SI/HI/AH/VH, No Social Issues, Heme/Lymph: No Bruising, No Bleeding,No Lymphadenopathy Endocrine : No Polyuria, No Polydipsia, No Temperature Intolerance [facility] Past Medical History Medical History Morbid obesity Hyperlipidemia History of adenomatous polyp of colon Surgical History H/O local excision of skin lesion (04/07/18) History of colonoscopy (10/23/19) History of colonoscopy with polypectomy (10/14/19) Family History Family History Father Colon cancer Social History Social History Household Members: Family Household Members Other:: Brother and brother's Housing: House Do you presently have visiting nurse or other home services: No Alcohol intake: never Patient Tobacco Use Status: Never used Tobacco Second Hand Smoke Exposure: No Do you have a plan to hurt others: No Plan service: No Physical Exam Vital Signs: Vital Signs: Last Vital Signs Temp 98.1 F 12/30/24 03:37 Pulse 68 12/30/24 03:37 Resp 16 12/30/24 03:37 BP 150/89 H 12/30/24 03:37 Pulse Ox 98 12/30/24 03:37 O2 Del Method Room Air 12/30/24 03:37 BMI result Body Mass Index 36.2 Const: Other: Appearance: Alert. Oriented X3. No acute distress. Eyes: Pupils equal, round and reactive to light. ENT: Pharynx normal. Neck: Normal inspection. Neck supple. No lymph nodes noted. No crepitus CVS: Normal heart rate and rhythm. Pulses normal. Normal S1 and S2 Respiratory: No respiratory distress. Breath sounds normal. No Wheezing. No rales Abdomen: Soft and nontender. No rigidity. No distention. Skin: Skin warm and dry. Normal skin color. Normal skin turgor. there is 1.5 cm laceration to the PIP of the 3rd digit of the left hand , finger examined under a bloodless field, no tendons are visualized Extremities: No lower extremity edema. No Lacerations. No Rash. Patient able to flex and extend all fingers of both hands. Neuro: Oriented X 3. No motor deficit. No sensory deficit. Moving all extremities. No slurred speech. CN 2 through 12 grossly intact Psych: calm, cooperative, normal affect Course Course Course Narrative: patient has a simple laceration to the PIP of the left hand 3rd digit, patient will receive lidocaine and stitches will be applied patient agrees with plan Medical Decision Making Medical Decision Making MDM Narrative: patient has a U shaped laceration. Six stitches were applied, 6 0, infiltrated with 1% lidocaine without epinephrine. Procedures Laceration Laceration 1: Site: hand ( Third middle finger) Side (If applicable): left Description: stellate and irregular Depth: simple, single layer Local Anesthetic: lidocaine 1% Amount of anesthesia used (mL): 4 Pre-repair: wound explored Skin layer closed with: nylon Size (cm): 5-0 Number of sutures: 6 Technique: simple, interrupted Discharge Plan Discharge Clinical Impression: Laceration of finger Patient Disposition: Home, Self-Care Instructions: Care For Your Stitches (ED), Laceration (ED) Additional Instructions: your stitches need to be removed in 7-10 days. Please follow-up with your primary care physician tomorrow. If you have any worsening or new symptoms, please return to the emergency room or call 911 Prescriptions: No Action dapagliflozin propanediol [Farxiga] 5 mg tablet 5 mg PO DAILY citalopram 10 mg tablet 10 mg PO QAM atorvastatin 40 mg Tablet 40 mg PO BEDTIME Qty: 30 0RF aspirin [Adult Low Dose Aspirin] 81 mg tablet,delayed release (DR/EC) 81 mg PO DAILY Print Language: Tajik
[2024-12-30 04:33] VITALS: BP 150/89; PULSE 68; RESP 16; TEMP 36.7; O2SAT 98
[2024-12-30] MEDS: Lidocaine HCl 1 % 20 ML VIAL 5 ML INFILTRATI (04:36)
== END 2024-12-30 04:45 | disposition home or self-care (01) ==
LOC: HO.ED 04:27
PROVIDERS: Emergency Provider Emergency Medicine
DX: S61.213A Laceration without foreign body of left middle finger without damage to nail, initial encounter (principal); M79.642 Pain in left hand; W26.9XXA Contact with unspecified sharp object(s), initial encounter; Y93.9 Activity, unspecified; Y92.9 Unspecified place or not applicable; Y99.0 Civilian activity done for income or pay; Z79.899 Other long term (current) drug therapy
CPT/HCPCS: 12001; 99284; J2003